=== PATIENT | male | born 1955 ===

== ENCOUNTER 2021-04-29 07:14 | Day surgery (SDC) | payer BC ==
[~2021-04-29 07:14] MED LIST: Bupivacaine 0.5% 10 ML SDV ONE; Dexmedetomidine 200 MCG/2 ML SDV ONE; Heparin Sodium 100 Units/ML 3 ML Syringe ONE; Iopamidol 408 MG/ML 20 ML SDV ONE; Lactated Ringers 1,000 ML IV SCH; Lidocaine 1% 5 ML VIAL ONE; Propofol 200 MG/20 ML SDV ONE; Sodium Chloride 0.9% 10 ML Syringe FLUSH PRN; Sodium Chloride 0.9% 2.5 ML Syringe FLUSH PRN; Sodium Chloride 0.9% 20 ML SDV IV PRN; Water For Injection, Sterile 20 ML ONE; ceFAZolin 2 GM in Premix Bag 1 BAG IV ONE; fentaNYL 100 MCG/2 ML SDV ONE
[2021-04-29] MEDS ORDERED: Morphine 4 MG/ML VIAL IVPUSH PRN (07:27)
[2021-04-29] MEDS ORDERED: Naloxone 0.4 MG/ML SDV IVPUSH PRN (07:27)
[2021-04-29] MEDS ORDERED: Metoclopramide 10 MG/2 ML SDV IVPUSH PRN (07:27)
[2021-04-29] MEDS ORDERED: HYDROmorphone 1 MG/ML Syringe IVPUSH PRN (07:27)
[2021-04-29] MEDS ORDERED: fentaNYL 100 MCG/2 ML SDV IVPUSH PRN (07:27)
[2021-04-29] MEDS ORDERED: Ondansetron 4 MG/2 ML SDV IVPUSH PRN (07:27)
[2021-04-29] MEDS ORDERED: Albuterol 0.083% 2.5 MG/3 ML Neb Soln NEB PRN (07:27)
[2021-04-29] MEDS ORDERED: ePHEDrine 50 MG/ML SDV ONE (07:50)
[2021-04-29] MEDS ORDERED: Octyl 2-Cyanoacrylate 1 Tube ONE (08:02)
== END 2021-04-29 09:25 | disposition home or self-care (01) ==
LOC: MW.SDS 07:14
PROVIDERS: ATTEND Surgery
DX: C34.91 Malignant neoplasm of unspecified part of right bronchus or lung (principal); J44.9 Chronic obstructive pulmonary disease, unspecified; F17.290 Nicotine dependence, other tobacco product, uncomplicated; E78.00 Pure hypercholesterolemia, unspecified; J45.909 Unspecified asthma, uncomplicated; E66.9 Obesity, unspecified; Z68.31 Body mass index [BMI] 31.0-31.9, adult; Z98.52 Vasectomy status; Z79.82 Long term (current) use of aspirin; Z79.899 Other long term (current) drug therapy
CPT/HCPCS: 36561; 71045; 76000; A9270; C1788; J0690; J1642; J2704; J3490; J7120; 00532; J3010; Q9966